=== PATIENT | male | born 1965 | race Caucasian/White ===

== ENCOUNTER → 2022-04-20 | Outpatient (CLI) | payer OTHER, SELFPAY ==
--- NOTE | 2022-04-20 07:04 | MRI_ITS ---
STUDY: MRI RIGHT SHOULDER REASON FOR EXAM: Male, 56 years old. OSTEOARTHRITIS TECHNIQUE: Standardized fat and water weighted pulse sequences were obtained in all 3 orthogonal planes. COMPARISON: None. FINDINGS: There is tendinosis with partial intrasubstance tear of the distal supraspinatus, series 6 image 13/20. Normal infraspinatus tendon. Normal subscapularis tendon. Normal teres minor tendon. Normal supraspinatus muscle. Normal infraspinatus muscle. Normal subscapularis muscle. Normal teres minor muscle. Normal glenohumeral articulation. There are small cysts of the lateral humeral head. There is tear of the superior labrum and biceps anchor, series 5 image 12/20. There is attenuation of the long head of the biceps tendon in the bicipital groove . Normal capsulo- ligamentous complex. Normal rotator interval. There is hypertrophic osteoarthritis of the acromioclavicular articulation with impingement upon the musculotendinous junction of the supraspinatus muscle. There is a Type II morphology (curved) acromion, with a neutral orientation. There is no subacromial-subdeltoid bursal fluid. Normal visualized coracohumeral and coracoacromial ligaments. Normal quadrilateral space. Normal axillary space. Normal deltoid muscle. Normal trapezius muscle. MRI/Upper Ext Joint Only(Routine) IMPRESSION: Partial tear of the supraspinous tendon. No full-thickness rotator cuff tear. Tear of the superior labrum and biceps anchor. There is attenuated appearance with tear and/or subluxation of the long head of the biceps tendon. Acromioclavicular arthrosis with impingement. Electronically Signed: Hunter Luna MD at 8:54 EST ,
== END | disposition home or self-care (01) ==
PROVIDERS: Referring Provider Nurse Practitioner Family; Visit Provider Nurse Practitioner Family
DX: M19.011 Primary osteoarthritis, right shoulder (principal); S46.011A Strain of muscle(s) and tendon(s) of the rotator cuff of right shoulder, initial encounter
CPT/HCPCS: 73221

== ENCOUNTER → 2022-11-02 | Outpatient (CLI) | payer OTHER, SELFPAY ==
--- NOTE | 2022-11-02 07:21 | MRI_ITS ---
EXAM: MR CERVICAL SPINE WITHOUT AND WITH INTRAVENOUS CONTRAST CLINICAL INDICATION: NECK PAIN, NO RELIEF SINCE HAVING SURGERY IN 2013 TECHNIQUE: Multiplanar and multisequence MR images of the cervical spine without and with intravenous contrast were performed. CONTRAST: CLARISCAN 23 CC IV COMPARISON: 12/29/2015. FINDINGS: VERTEBRAE: Unremarkable. Normal vertebral bodies and posterior elements. Normal alignment. Normal craniocervical junction and cervicothoracic junction. No spondylolisthesis. There is preservation of the normal cervical lordosis. SPINAL CORD: Unremarkable in signal and morphology. SOFT TISSUES: Unremarkable. No prevertebral soft tissue swelling. LYMPH NODES: Unremarkable. There is no cervical adenopathy. DISCS/SPINAL CANAL/NEURAL FORAMINA: C2-3: Normal disc height and morphology. Normal central canal. Foramina are patent. C3-4: Normal disc height and morphology. Normal central canal. Severe left foraminal stenosis. C4-5: Normal disc height and morphology. Normal central canal. Mild left foraminal stenosis. C5-6: Prior anterior cervical discectomy and fusion. Normal central canal. Foramina are patent. C6-7: Normal disc height and morphology. Normal central canal. Foramina are patent. C7-T1: Normal disc height and morphology. Normal central canal. Foramina are patent. No enhancing lesion. MRI/Spine Cervical W/WO Contrast IMPRESSION: No fracture. No compressive disc disease or canal stenosis. C3-4 left foraminal stenosis. Electronically Signed: Ashlee Comer MD at 21:09 EDT Reading Location ID and State: [id number] / Tel , Service support ,
== END | disposition home or self-care (01) ==
PROVIDERS: Referring Provider Nurse Practitioner Acute Care; Visit Provider Nurse Practitioner Acute Care
DX: S13.4XXA Sprain of ligaments of cervical spine, initial encounter (principal); M50.220 Other cervical disc displacement, mid-cervical region, unspecified level
CPT/HCPCS: 72156; A9585